=== PATIENT | male | born 1975 | race Caucasian/White ===

== ENCOUNTER 2017-10-28 12:39 | Inpatient (IN) | payer MEDICAID ==
[~2017-10-28] VITALS: Ht 185.4 cm; Wt 114.3 kg
[~2017-10-28 12:39] MED LIST: CALC-766 PO; FURO-150 PO; INSU100V7 SUBCUT; LEVO50TA77 PO; LOSA25TA3 PO; MELA2.5T PO; METO25TA6 PO; NPH,100V SUBCUT; OMEP20CA10 PO; RANI-281 PO; SERT50TA12 PO; SIMV20TA6 PO
--- NOTE | 2017-10-28 12:39 | NUR ---
Pt placed in bed 6 by [facility] 64
--- NOTE | 2017-10-28 12:39 | NUR ---
Per Medics, pt's blood sugar dropped to 54 causing pt to pass out. Mother called 911. Pt was given glucose paste and bs increased to 90. Pt arrives AAOx4, states that he took his insulin before eating breakfast. Pt states he checked his sugar, but doesn't recall value. Pt states that he woke up surrounded by paramedics. Pt denies c/o C/P or SOB, denies hitting head, no c/o pain or discomfort.
[2017-10-28 12:47] VITALS: BP_SYST 136
--- NOTE | 2017-10-28 12:55 | NUR ---
ER at bedside examining patient.
[2017-10-28] MEDS ORDERED: ASPI-1063 PO (12:57)
[2017-10-28] MEDS ORDERED: FURO-150 PO (12:57)
[2017-10-28] MEDS ORDERED: METO25TA3 PO (12:57)
[2017-10-28] MEDS ORDERED: DICL50TA9 PO (12:57)
[2017-10-28] MEDS ORDERED: OMEP-130 PO (12:57)
[2017-10-28] MEDS ORDERED: SERT50TA12 PO (12:57)
[2017-10-28] MEDS ORDERED: LOSA25TA3 PO (12:57)
[2017-10-28] MEDS ORDERED: LEVO50TA77 PO (12:57)
[2017-10-28] MEDS ORDERED: LIP20 PO (12:58)
[2017-10-28] MEDS ORDERED: INSU100V7 SUBCUT (12:58)
[2017-10-28] MEDS ORDERED: NPH,100V SUBCUT (12:58)
--- NOTE | 2017-10-28 12:58 | NUR ---
Medication reconciliation completed with information provided by patient. Any prior medication reconciliation on file was reviewed and corrected.
--- NOTE | 2017-10-28 13:31 | NUR ---
Pt to CT via W/C.
[2017-10-28 13:38] LABS: BASOPHILS % (AUTO) 0.4 % (0.0-2.0); EOSINOPHILS # (AUTO) 0.2 K/uL (0.0-0.4); EOSINOPHILS % (AUTO) 2.6 % (0.0-4.0); HEMATOCRIT 44.8 % (36-54); HEMOGLOBIN 14.8 g/dL (14.0-18.0); LYMPHOCYTES # (AUTO) 1.9 K/uL (1.0-5.5); LYMPHOCYTES % (AUTO) 21.1 % (20.5-51.5); MEAN CORPUSCULAR HEMOGLOBIN 31 pg (27-31); MEAN CORPUSCULAR HGB CONC 33 % (32-36); MEAN CORPUSCULAR VOLUME 92 fL (79.0-98.0); MONOCYTES # (AUTO) 0.6 K/uL (0.0-1.0); MONOCYTES % (AUTO) 7.2 % (1.7-9.3); NEUTROPHILS # (AUTO) 6.2 K/uL (1.8-7.7); NEUTROPHILS % (AUTO) 68.7 % (40.0-70.0); PLATELET COUNT (AUTO) 290 K/uL (130-430); RED BLOOD CELL COUNT(AUTO) 4.86 MIL/uL (4.2-6.2); RED CELL DISTRIBUTION WIDTH 13.4 % (9.0-15.0); WHITE BLOOD COUNT (AUTO) 8.9 K/uL (4.8-10.8)
--- NOTE | 2017-10-28 13:40 | NUR ---
Pt returns from CT. No needs verbalized at this time.
[2017-10-28 13:53] LABS: CALCIUM 8.7 mg/dL (8.4-11.0); CREATININE 1.83 mg/dL (0.55-1.30); POTASSIUM 3.8 mmol/L (3.5-5.1)
[2017-10-28 13:56] LABS: INR 0.9 (0.80-1.20); PROTHROMBIN TIME 9.3 SECS (9.5-12.5)
[2017-10-28 14:10] LABS: ALBUMIN 3.5 g/dL (3.4-4.8); TOTAL BILIRUBIN 0.5 mg/dL (0.0-1.0)
--- NOTE | 2017-10-28 15:10 | NUR ---
Pt accucheck 78. Dr. Quinn notified. Pt given orange juice. Pt AAOx4, denies c/o pain or discomfort, no needs verbalized at this time.
--- NOTE | 2017-10-28 15:28 | NUR ---
Patient will be admitted to care of Dr. Esteves. Admitted to Tele unit. Will go to room 134B. Belongings list completed. Summary report printed. Report will be given at bedside.
[2017-10-28] MEDS ORDERED: DEXTROSE 50% JECT 50 ML DISP.SYRIN IVP PRN (15:30)
[2017-10-28] MEDS ORDERED: INSULIN REGULAR, HUMAN 100 UNITS/ML, 10 ML VIAL (novoLIN R) SUBCUT PRN (15:30)
[2017-10-28] MEDS ORDERED: DEXTROSE 50%-WATER 50 ML DISP.SYRIN IVP PRN ×2 (15:45)
[2017-10-28] MEDS ORDERED: GLUCOSE 15 GM GEL (in 37.5 GM TUBE) PO PRN ×2 (15:45)
--- NOTE | 2017-10-28 15:45 | NUR ---
ADMISSION: The patient, ADELITA RAMOS, 41 y/o, M admitted by CHIKIS JIM MD, was given written information regarding hospital policies, unit procedures and contact persons. Valuables were checked and inventory done. call light within reach, two side rails up, bed at lowest position, bed alarm is on.
[2017-10-28 15:48] VITALS: BP_SYST 153
--- NOTE | 2017-10-28 16:10 | NUR ---
INITIAL NOTE RECEIVED PT IN BED, NO S/S OF DISTRESS OR SOB NOTED, NO DIZZINESS OR HEADACHE, PT HAS NO C/O PAIN AT THIS TIME, PT IN STABLE CONDITION, PT AAO X4, VERBAL, IV CATHETER PATENT, NO SIGNS OF INFECTION OR INFILTRATION NOTED. PT HAS NO SIGNS OF HYPOGLYCEMIA. BED AT LOWEST POSITION, CALL LIGHT WITHIN REACH, WILL CONTINUE TO MONITOR PT FOR ANY CHANGES, FALL PRECAUTIONS AND SAFETY PRECAUTIONS IN PLACE.
[2017-10-28 16:34] VITALS: BP_SYST 153
--- NOTE | 2017-10-28 18:22 | NUR ---
ROUNDS DR DIANDRA VAUGHAN ,AWARE OF PATIENTS CONDITION, PER MD TO COVER BLOOD GLUCOSE OF 255 AT THIS TIME, AWARE THAT HIS SUGAR IS 255. NEW ORDERS WRITTEN. Addendum: 10/28/17 at 1824 by Belia Mehta RN PER MD TO CALL HER IF BLOOD GLUCOSE IS ABOVE 200 OR AT 10 PM WITH RESULTS WHICH EVER COMES SOONER, NNEKAUCHMANSOOR Q4
--- NOTE | 2017-10-28 18:25 | NUR ---
EDUCATION EDUCATED PT ON SIDE EFFECTS OF NOVOLOG ADMINISTERED, PT VERBALIZED UNDERSTANDING
[2017-10-28] MEDS ORDERED: ZOLPIDEM TARTRATE 5 MG TABLET PO PRN (18:30)
[2017-10-28] MEDS ORDERED: INSULIN ASPART 100 UNITS/ML, 10 ML VIAL SUBCUT ONE (18:30)
[2017-10-28] MEDS ORDERED: HYDROcodone/ACETAMIN 5-325 MG TAB (NORCO/ VICODIN) PO PRN (18:30)
[2017-10-28] MEDS ORDERED: ACETAMINOPHEN 325 MG TABLET PO PRN (18:30)
[2017-10-28] MEDS ORDERED: cloNIDine HCL 0.1 MG TABLET PO PRN (18:30)
--- NOTE | 2017-10-28 18:35 | NUR ---
CLOSING NOTE PT IN BED, NO S/S OF DISTRESS OR SOB NOTED, NO DIZZINESS OR HEADACHE, PT HAS NO C/O PAIN AT THIS TIME, PT IN STABLE CONDITION, PT AAO X4, VERBAL, IV CATHETER PATENT, NO SIGNS OF INFECTION OR INFILTRATION NOTED. PT HAS NO SIGNS OF HYPOGLYCEMIA. BED AT LOWEST POSITION, CALL LIGHT WITHIN REACH, WILL ENDORSE CARE OF PT TO INCOMING NURSE, FALL PRECAUTIONS AND SAFETY PRECAUTIONS IN PLACE. NEEDS MET THROUGHOUT SHIFT.
[2017-10-28] MEDS ORDERED: PENI250T2 PO (18:46)
--- NOTE | 2017-10-28 18:49 | NUR ---
CALL DR DIANDRA MICHELLE TO LET HER KNOW PT BROUGHT IN [facility] ANTIBIOTICS AND WANTS TO RESUME THEM, AWAITING CALL BACK. Addendum: 10/28/17 at 1902 by Belia Mehta RN SPOKE WITH DR JIM AND SHE STATED THAT SHE WOULD CONTINUE THE MEDICATION ON HER OWN
--- NOTE | 2017-10-28 19:45 | NUR ---
ROUNDS PATIENT IN BED, WATCHING TV, VITALS STABLE, DENIES ANY PAIN AND DISCOMFORT AT THIS TIME. ASSESSMENT DONE AND DOCUMENTED. SEE FLOWSHEET. NEEDS ATTENDED TO. SAFETY MEASURES IN PLACED. BED IN LOW AND LOCKED POSITION. CALL LIGHT PLACED WITHIN REACH.
[2017-10-28] MEDS: METOPROLOL SUCCINATE 25 MG TAB.SR.24H (TOPROL XL) PO SCH (20:07)
[2017-10-28] MEDS: PENICILLIN V POTASSIUM 250 MG TABLET PO SCH (20:11)
[2017-10-28] MEDS: NACL 0.9% 1,000 ML IV SCH (21:05)
--- NOTE | 2017-10-28 22:10 | NUR ---
DR. JIM PAGED AND TALKED TO DR. JIM, PATIENT'S BLOOD SUGAR 168. NEW ORDER TO HAVE ACCU CHECK Q 4HRS. WILL CONTINUE TO MONITOR.
--- NOTE | 2017-10-29 00:05 | NUR ---
PATIENT RESTING: Patient resting quietly. No acute distress noted. Vital signs within normal range.
[2017-10-29 00:42] VITALS: BP_SYST 153
[2017-10-29] MEDS: PENICILLIN V POTASSIUM 250 MG TABLET PO SCH ×5 (01:45→23:54)
--- NOTE | 2017-10-29 02:10 | NUR ---
DR. JIM PAGED AND TALKED TO DR. JIM, PATIENT'S BLOOD SUGAR 265, NEW ORDER GIVEN FOR REGULAR INSULIN 4 UNITS SUBCUT X1. WILL CONTINUE TO MONITOR.
[2017-10-29] MEDS ORDERED: INSULIN REGULAR, HUMAN 100 UNITS/ML, 10 ML VIAL SUBCUT ONE (02:15)
[2017-10-29] MEDS ORDERED: INSULIN REGULAR, HUMAN 100 UNITS/ML, 10 ML VIAL SUBCUT SCH (02:30)
--- NOTE | 2017-10-29 04:13 | NUR ---
ROUNDS PATIENT ASLEEP, NO SOB NOR PAIN AND DISCOMFORT NOTED. WILL CONTINUE TO MONITOR.
[2017-10-29] MEDS: LEVOTHYROXINE SODIUM 0.05 MG TABLET PO SCH (06:02)
[2017-10-29 06:15] LABS: BASOPHILS % (AUTO) 0.4 % (0.0-2.0); EOSINOPHILS # (AUTO) 0.2 K/uL (0.0-0.4); EOSINOPHILS % (AUTO) 1.7 % (0.0-4.0); HEMATOCRIT 41.2 % (36-54); HEMOGLOBIN 13.9 g/dL (14.0-18.0); LYMPHOCYTES # (AUTO) 1.8 K/uL (1.0-5.5); LYMPHOCYTES % (AUTO) 17.2 % (20.5-51.5); MEAN CORPUSCULAR HEMOGLOBIN 31 pg (27-31); MEAN CORPUSCULAR HGB CONC 34 % (32-36); MEAN CORPUSCULAR VOLUME 92 fL (79.0-98.0); MONOCYTES # (AUTO) 0.7 K/uL (0.0-1.0); MONOCYTES % (AUTO) 6.3 % (1.7-9.3); NEUTROPHILS % (AUTO) 74.4 % (40.0-70.0); PLATELET COUNT (AUTO) 283 K/uL (130-430); RED BLOOD CELL COUNT(AUTO) 4.48 MIL/uL (4.2-6.2); RED CELL DISTRIBUTION WIDTH 13.4 % (9.0-15.0); WHITE BLOOD COUNT (AUTO) 10.7 K/uL (4.8-10.8)
--- NOTE | 2017-10-29 06:50 | NUR ---
CLOSING NOTES PATIENT AWAKE, VITALS STABLE, DENIES ANY PAIN AT THIS TIME. ALL NEEDS ATTENDED TO. SAFETY AND FALL PRECAUTION MEASURES MAINTAINED. BLOOD SUGAR CHECK DONE, 267 MG/DL, NO INSULIN COVERAGE. BED IN LOW AND LOCKED POSITION. CALL LIGHT PLACED WITHIN REACH.
[2017-10-29 06:52] LABS: CREATININE 1.6 mg/dL (0.55-1.30); POTASSIUM 4.4 mmol/L (3.5-5.1)
[2017-10-29] MEDS: NACL 0.9% 1,000 ML IV SCH ×3 (06:52→20:42)
[2017-10-29 07:07] LABS: ALBUMIN 3.3 g/dL (3.4-4.8); TOTAL BILIRUBIN 0.5 mg/dL (0.0-1.0)
[2017-10-29 08:00] VITALS: BP_SYST 149
--- NOTE | 2017-10-29 08:00 | NUR ---
PATIENT IN BED, A/OX4 WATCHING TV, VITALS STABLE, DENIES ANY PAIN AND DISCOMFORT AT THIS TIME. IV ON LEFT AC, #20, WITH NS AT 125ML/HR. CALL LIGHT IN PLACE, BED LOCKED AT THE LOWEST POSITION, WILL CONTINUE TO MONITOR.
[2017-10-29] MEDS: ATORVASTATIN 20 MG TABLET PO SCH (09:07)
[2017-10-29] MEDS: ASPIRIN 81 MG TABLET(ECOTRIN) PO SCH (09:08)
[2017-10-29] MEDS: METOPROLOL SUCCINATE 25 MG TAB.SR.24H (TOPROL XL) PO SCH ×2 (09:08→20:44)
[2017-10-29] MEDS: PANTOPRAZOLE SODIUM 40 MG TAB PO SCH (09:08)
[2017-10-29] MEDS: LOSARTAN POTASSIUM 25 MG TABLET PO SCH (09:08)
[2017-10-29] MEDS: SERTRALINE HCL 50 MG TABLET PO SCH (09:09)
[2017-10-29] MEDS ORDERED: MAG-AL HYDROX/SIMETH 30 ML UDC PO ONE (09:30)
[2017-10-29] MEDS ORDERED: INSULIN NPH 100 UNITS/ML 10 ML VIAL SUBCUT ONE ×3 (09:30→16:30)
--- NOTE | 2017-10-29 09:41 | NUR ---
BLOOD SUGAR 351. DR. JIM IS AWARE, AND ORDERS ARE GIVEN.
--- NOTE | 2017-10-29 09:45 | NUR ---
NPO STARTED IN PREPARATION OF US ABDOMEN.
--- NOTE | 2017-10-29 11:21 | NUR ---
PATIENT'S BLOOD SUGAR 362. 10 UNITS OF NPH IS GIVEN PER ORDER
[2017-10-29] MEDS ORDERED: SSNPH SQ (12:51)
[2017-10-29 12:53] VITALS: BP_SYST 154
--- NOTE | 2017-10-29 13:50 | NUR ---
PATIENT COMPLETES US. NPO LIFTED.
[2017-10-29] MEDS: INSULIN ASPART 100 UNITS/ML, 10 ML VIAL (NovoLOG) SUBCUT PRN ×3 (14:10→20:54)
--- NOTE | 2017-10-29 14:34 | NUR ---
CARE DELEGATED TO MARINA KAPADIA
--- NOTE | 2017-10-29 14:51 | NUR ---
Opening Note Report received from eFr GRAY. Patient is alert and oriented and is resting in bed. IV is on the LAC 20g SL. Abd US was done. No signs of distress noted at the moment. Call light is within reach and bed is in low position. Will continue to monitor.
[2017-10-29 16:23] VITALS: BP_SYST 147
[2017-10-29] MEDS ORDERED: METOCLOPRAMIDE HCL 10 MG TABLET PO ONE (16:30)
[2017-10-29] MEDS ORDERED: ONDANSETRON HCL 4 MG/2 ML VIAL IVP PRN (16:30)
--- NOTE | 2017-10-29 16:50 | NUR ---
RN Notes Current blood sugar is 247. Dr. Esteves was informed of the results. Urine for UA and drug screen was collected, results are pending.
[2017-10-29 17:48] LABS: BILIRUBIN,URINE NEGATIVE (NEGATIVE); CLARITY/URINE CLEAR (CLEAR); COLOR,URINE YELLOW (YELLOW); GLUCOSE,URINE 3+ (NEGATIVE); KETONES,URINE 1+ (NEGATIVE); LEUKOCYTE ESTERASE ,URINE NEGATIVE (NEGATIVE); NITRITE, URINE NEGATIVE (NEGATIVE); PH,URINE 5.5 (5.0-8.0); PROTEIN URINE 1+ (NEGATIVE); UROBILINOGEN,URINE 0.2 (0.2-1.0)
[2017-10-29 17:51] LABS: BLOOD, URINE TRACE (NEGATIVE)
[2017-10-29 17:59] LABS: BACTERIA,URINE FEW /HPF (None Seen); MUCUS,URINE None Seen /LPF (None Seen); RBC,URINE 0-3 /HPF (0-3); WBC,URINE NONE SEEN /HPF (0-3)
[2017-10-29 18:00] LABS: BARBITURATE, URINE NEGATIVE (NEG <=200); BENZODIAZEPINE, URINE NEGATIVE (NEG <=150); CANNABINOID, URINE POSITIVE (NEG <=50); COCAINE, URINE NEGATIVE (NEG <=150); METHAMPHETAMINES SCREEN,URINE NEGATIVE (NEG <=500); OPIATE, URINE POSITIVE (NEG <=100); PHENCYCLIDINE SCREEN,URINE NEGATIVE (NEG <=25); UR TRICYCLIC ANTIDEPRESSANTS NEGATIVE (NEG <=300); URINE AMPHETAMINE NEGATIVE (NEG <=500); URINE METHADONE NEGATIVE (NEG <=200); URINE OXYCODONE SCREEN NEGATIVE (NEG <=100); URINE PROPOXYPHENE SCREEN NEGATIVE (NEG <=300)
--- NOTE | 2017-10-29 18:58 | NUR ---
Closing Note Patient is resting in bed. His mother is at the bedside. IV is on the LAC 22g running NS@80. No signs of distress noted at the moment. Call light is within reach and bed is in low position. Will endorse care to the oncoming nurse.
[2017-10-29 19:00] VITALS: BP_SYST 137
--- NOTE | 2017-10-29 19:15 | NUR ---
change of shift.pt.presents stable status.general respiratory.dy shift nsg;severo;rn inquired if nausea has subsided post administration:zofran.pt.stated,yes.pt.stated he did not eat he hospital food, mother had presented w/food from home.pt.tolerated the food.
[2017-10-29 20:00] VITALS: BP_SYST 137
--- NOTE | 2017-10-29 20:00 | NUR ---
pt.assessed.v/s assessed;values w/in normal limits.i have apprised the pt.that snacks are available w/in the shift:no requests@this hour.no c/o pain/nausea.mother remains @bedside.pt.had inquired if he is to be d/c tonight.i am to review the drThaisorders.o2-sat%=98%.room air.iv fluids infusing.call light/telephone w/in the pt's reach.
[2017-10-29] MEDS: METOCLOPRAMIDE HCL 10 MG TABLET PO SCH (20:44)
--- NOTE | 2017-10-29 21:00 | NUR ---
210op medications administered.i have changed the iv fluids bag.i have assessed the blood glucose:value: 194mg/dl.i have administered 2-units;novolog insulin per the sliding scale.i have reviewed the dr's orders x2;re d/c home.no orders extant.i have apprised the pt.d/c is possible in am:10/30/17.wednesday. Addendum: 10/30/17 at 0136 by Heraclio Cifuentes RN mother has left the hospital.
--- NOTE | 2017-10-29 22:00 | NUR ---
pt.assessed.pt.presents quiescent affect;calm,somnolent.pt.capable to reposition self.pt.presents general status stable absent distress/discomfort.respiratory status absent distress/discomfort.iv fluids infusing.call light/telephone w/in the pt's reach.
--- NOTE | 2017-10-30 | NUR ---
pt.assessed.v/s assessed;values w/in normal limits.i have administered the midnight dose:pcn/k+ tab po. general status stable absent distress/discomfort.respiratory status stable absent distress/discomfort.pt. capable to reposition self.iv fluids infusing.call light/telephone w/in the pt's reach.no requests presents @this hour.
[2017-10-30 00:28] VITALS: BP_SYST 108
--- NOTE | 2017-10-30 02:00 | NUR ---
pt.assessed.pt.presents quiescent affect;calm,somnolent.general status stable absent distress/discomfort. respiratory status stable absent distress/discomfort.iv fluids infusing.call light/telephone w/in the pt's reach.
--- NOTE | 2017-10-30 04:00 | NUR ---
pt.assessed.pt.capable to reposition self.pt.presents quiescent affect;calm,somnolent. general status stable absent distress/discomfort.respiratory status stable absent distress/discomfort.iv fluids,infusing.call light/telephone w/in the pt's reach.
--- NOTE | 2017-10-30 06:09 | NUR ---
pt.assessed.pt.presents quiescent affect;calm,somnolent.pt.capable to reposition self. general status stable absent distress/discomfort.respiratory status absent distress/ discomfort.iv fluids infusing.call light/telephone w/in the reach of the pt.
[2017-10-30] MEDS: PENICILLIN V POTASSIUM 250 MG TABLET PO SCH ×2 (06:36→11:54)
[2017-10-30] MEDS: LEVOTHYROXINE SODIUM 0.05 MG TABLET PO SCH (06:37)
[2017-10-30] MEDS: METOCLOPRAMIDE HCL 10 MG TABLET PO SCH ×2 (06:37→13:51)
[2017-10-30 06:40] LABS: ALBUMIN 3.1 g/dL (3.4-4.8); CALCIUM 8.6 mg/dL (8.4-11.0); CREATININE 1.44 mg/dL (0.55-1.30); POTASSIUM 3.8 mmol/L (3.5-5.1); TOTAL BILIRUBIN 0.7 mg/dL (0.0-1.0)
[2017-10-30] MEDS: INSULIN ASPART 100 UNITS/ML, 10 ML VIAL (NovoLOG) SUBCUT PRN ×3 (06:43→14:57)
--- NOTE | 2017-10-30 06:48 | NUR ---
i have administered the 0600-0700a medications;i have assessed the blood glucose;value:194mg/dl. i have administered 2 units;novolog insulin.no requests@this hour.
--- NOTE | 2017-10-30 07:25 | NUR ---
Initial notes: Patient on bed awake, alert and oriented. Stable. I.V. access patent. Safety measures in placed.Side rails up. Refused to turn on bed alarm. Call light within reach. Report received from MARINA Pulliam.
[2017-10-30 08:03] VITALS: BP_SYST 145
[2017-10-30] MEDS: NACL 0.9% 1,000 ML IV SCH (09:05)
[2017-10-30] MEDS: ATORVASTATIN 20 MG TABLET PO SCH (09:05)
[2017-10-30] MEDS: ASPIRIN 81 MG TABLET(ECOTRIN) PO SCH (09:05)
[2017-10-30] MEDS: SERTRALINE HCL 50 MG TABLET PO SCH (09:05)
[2017-10-30] MEDS: METOPROLOL SUCCINATE 25 MG TAB.SR.24H (TOPROL XL) PO SCH (09:06)
[2017-10-30] MEDS: LOSARTAN POTASSIUM 25 MG TABLET PO SCH (09:06)
[2017-10-30] MEDS: PANTOPRAZOLE SODIUM 40 MG TAB PO SCH (09:06)
--- NOTE | 2017-10-30 09:12 | NUR ---
rounds: patient on bed resting. watching tv. no distress noted.
--- NOTE | 2017-10-30 11:10 | NUR ---
rounds: patient resting and watching tv. no distress noted.
[2017-10-30 11:29] VITALS: BP_SYST 143
[2017-10-30] MEDS ORDERED: INSULIN NPH 100 UNITS/ML 10 ML VIAL SUBCUT ONE (12:15)
[2017-10-30 12:45] VITALS: BP_SYST 137
[2017-10-30 13:17] VITALS: BP_SYST 143
--- NOTE | 2017-10-30 13:53 | NUR ---
Dietitian Recommendations *Recommend continuing [facility] diet per MD orders. *Recommend consider Glucerna BID for 5 days or until oral intake improves. Oral supplement will provide 440 kcal and 20 gm protein daily. Please see Nutritional Assessment for details. BO, RD
--- NOTE | 2017-10-30 14:59 | NUR ---
DM Education: DM education provided for the patient. Hand outs also given. Patient verbalized understanding.
[2017-10-30] MEDS ORDERED: METO-290 PO (15:28)
--- NOTE | 2017-10-30 15:45 | NUR ---
D/C Patient Patient given medication reconciliation form and D/C instructions. Exit Care provided. Patient verbalized understanding. MD discussed with patient the results and treatment provided. Ambulatory with unsteady gait uses cane for discharge to home. Patient in stable condition, ID band removed. IV catheter removed, intact and dressing applied, no active bleeding. Rx of given. Patient educated on pain management. All belongings sent with patient.
== END 2017-10-30 15:45 | disposition home or self-care (01) | DRG 420 ==
LOC: SED 12:39 → STU 15:21 → MERGE 15:21 → STU 15:31 → SMU 10-29 09:42
PROVIDERS: ADMIT Internal Medicine; ATTEND Internal Medicine
DX: E11.649 Type 2 diabetes mellitus with hypoglycemia without coma (principal); N17.0 Acute kidney failure with tubular necrosis; E11.21 Type 2 diabetes mellitus with diabetic nephropathy; I12.9 Hypertensive chronic kidney disease with stage 1 through stage 4 chronic kidney disease, or unspecified chronic kidney disease; E78.5 Hyperlipidemia, unspecified; E11.22 Type 2 diabetes mellitus with diabetic chronic kidney disease; E03.9 Hypothyroidism, unspecified; N18.9 Chronic kidney disease, unspecified; Z79.899 Other long term (current) drug therapy; Z87.891 Personal history of nicotine dependence; Z79.4 Long term (current) use of insulin
CPT/HCPCS: 36415; 70450-TC; 76700-TC; 76770; 80053; 80307; 81000-TC; 82962; 83605; 83690-TC; 83735-TC; 84484; 85025; 85610-TC; 87040-TC; 93005; 99285; J1815; J8597

== ENCOUNTER 2021-11-05 16:15 | Emergency (ER) | payer MEDICAID ==
[~2021-11-05] VITALS: Ht 185.4 cm; Wt 117.9 kg
[2021-11-05 16:15] VITALS: BP_SYST 145
[~2021-11-05 16:15] MED LIST changes: +ASPI-1393 PO; +CALC-17 PO; -CALC-766 PO; -LEVO50TA77 PO; +LIP20 PO; +METO-290 PO; +METO25TA3 PO; +OMEP-268 PO; -OMEP20CA10 PO; +OMEP20CA15 PO; +PENI250T2 PO; -RANI-281 PO; +RANI-673 PO; +SERT-436 PO; -SERT50TA12 PO; +SIMV-43 PO; -SIMV20TA6 PO; +SYN50 PO
[2021-11-05 17:45] LABS: BASOPHILS # (AUTO) 0.1 K/uL (0.0-0.2); BASOPHILS % (AUTO) 0.5 % (0.0-2.0); EOSINOPHILS # (AUTO) 0.1 K/uL (0.0-0.4); EOSINOPHILS % (AUTO) 1.1 % (0.0-4.0); HEMATOCRIT 48.6 % (36-54); HEMOGLOBIN 16.2 g/dL (14.0-18.0); LYMPHOCYTES # (AUTO) 2.4 K/uL (1.0-5.5); LYMPHOCYTES % (AUTO) 20.1 % (20.5-51.5); MEAN CORPUSCULAR HEMOGLOBIN 31 pg (27-31); MEAN CORPUSCULAR HGB CONC 33 % (32-36); MEAN CORPUSCULAR VOLUME 92 fL (79.0-98.0); MONOCYTES # (AUTO) 0.6 K/uL (0.0-1.0); MONOCYTES % (AUTO) 5.3 % (1.7-9.3); NEUTROPHILS # (AUTO) 8.6 K/uL (1.8-7.7); PLATELET COUNT (AUTO) 218 K/uL (130-430); RED BLOOD CELL COUNT(AUTO) 5.31 MIL/uL (4.2-6.2); RED CELL DISTRIBUTION WIDTH 14.5 % (9.0-15.0); WHITE BLOOD COUNT (AUTO) 11.8 K/uL (4.8-10.8)
[2021-11-05 18:03] LABS: ANION GAP 12 (5-15); CALCIUM 8.4 mg/dL (8.4-11.0); CHLORIDE 107 mmol/L (98-107); CREATININE 2.06 mg/dL (0.55-1.30); GLUCOSE 138 mg/dL (70-99); POTASSIUM 3.1 mmol/L (3.5-5.1); SODIUM SERUM 139 mmol/L (136-145); UREA NITROGEN, BLOOD 22 mg/dL (8-21)
[2021-11-05 18:05] LABS: GFR AFRICAN AMERICAN 45 mL/min (>90)
[2021-11-05 18:09] LABS: ALANINE AMINOTRANSFERASE 21 U/L (12-78); ALBUMIN 3.5 g/dL (3.4-4.8); ASPARTATE AMINOTRANSFERASE 16 U/L (10-37); TOTAL BILIRUBIN 0.4 mg/dL (0.0-1.0)
[2021-11-05 18:12] LABS: ALCOHOL, BLOOD < 3 mg/dL (<10)
[2021-11-05] MEDS ORDERED: POTASSIUM CHLORIDE 10 MEQ TAB.PRT.SR PO ONE (19:00)
[2021-11-05 20:00] LABS: BILIRUBIN,URINE NEGATIVE (NEGATIVE); BLOOD, URINE NEGATIVE (NEGATIVE); CLARITY/URINE CLEAR (CLEAR); COLOR,URINE YELLOW (YELLOW); GLUCOSE,URINE 3+ (NEGATIVE); KETONES,URINE NEGATIVE (NEGATIVE); LEUKOCYTE ESTERASE ,URINE NEGATIVE (NEGATIVE); NITRITE, URINE NEGATIVE (NEGATIVE); PH,URINE 5.5 (5.0-8.0); PROTEIN URINE 2+ (NEGATIVE); UROBILINOGEN,URINE 0.2 (0.2-1.0)
[2021-11-05 20:09] LABS: BARBITURATE, URINE NEGATIVE (NEG <=200)
[2021-11-05 20:10] LABS: BENZODIAZEPINE, URINE NEGATIVE (NEG <=150); CANNABINOID, URINE POSITIVE (NEG <=50); COCAINE, URINE NEGATIVE (NEG <=150); METHAMPHETAMINES SCREEN,URINE NEGATIVE (NEG <=500); OPIATE, URINE NEGATIVE (NEG <=100); PHENCYCLIDINE SCREEN,URINE NEGATIVE (NEG <=25); UR TRICYCLIC ANTIDEPRESSANTS NEGATIVE (NEG <=300); URINE AMPHETAMINE NEGATIVE (NEG <=500); URINE METHADONE NEGATIVE (NEG <=200); URINE OXYCODONE SCREEN NEGATIVE (NEG <=100); URINE PROPOXYPHENE SCREEN NEGATIVE (NEG <=300)
[2021-11-05 20:26] LABS: BACTERIA,URINE RARE /HPF (None Seen); RBC,URINE 0-3 /HPF (0-3); WBC,URINE 0-3 /HPF (0-3)
[2021-11-05 20:27] LABS: MUCUS,URINE 1+ /LPF (None Seen)
[2021-11-05 20:35] VITALS: BP_SYST 132
== END 2021-11-05 20:40 | disposition home or self-care (01) ==
LOC: SED 16:15
DX: E16.2 Hypoglycemia, unspecified (principal); R56.9 Unspecified convulsions; E11.9 Type 2 diabetes mellitus without complications; K21.9 Gastro-esophageal reflux disease without esophagitis; Z79.4 Long term (current) use of insulin; Z79.899 Other long term (current) drug therapy
CPT/HCPCS: 99283; 80307; 80053; 81000; 82962; 85025; 36415; G0482

== ENCOUNTER 2022-04-30 15:21 | Emergency (ER) | payer MEDICAID ==
[~2022-04-30] VITALS: Ht 185.4 cm; Wt 108.9 kg
[2022-04-30 15:36] VITALS: BP_SYST 113
--- NOTE | 2022-04-30 16:30 | NUR ---
PT BIB SELF AWAKE AND ALERT NO SOB OR DISTRESS. PT C/O PAIN TO R ARM. PT STATED THAT AFTEER HE RECEIVED IN IV 4 DAYS AGO THE AREA HAS BEEN SENSITIVE. PT DENIES N/V.
--- NOTE | 2022-04-30 16:44 | NUR ---
MD DR SÁNCHEZ AT BEDSIDE
[2022-04-30] MEDS ORDERED: OXYCODONE/ACETAMINOPHEN 5-325 TABLET PO ONE (17:00)
[2022-04-30] MEDS ORDERED: IBUP-1969 PO (18:45)
[2022-04-30 18:59] VITALS: BP_SYST 125
--- NOTE | 2022-04-30 19:00 | NUR ---
Patient given written and verbal discharge instructions and verbalizes understanding. ER MD DR SÁNCHEZ discussed with patient the results and treatment provided. Patient in stable condition. ID arm band removed. Rx of MOTRIN given. Patient educated on pain management and to follow up with PMD. Pain Scale 6/10. Opportunity for questions provided and answered. Medication side effect fact sheet provided.
== END 2022-04-30 18:59 | disposition home or self-care (01) ==
LOC: SED 15:21
DX: I82.611 Acute embolism and thrombosis of superficial veins of right upper extremity (principal); M79.631 Pain in right forearm; E11.9 Type 2 diabetes mellitus without complications; K21.9 Gastro-esophageal reflux disease without esophagitis; Z79.4 Long term (current) use of insulin; Z79.899 Other long term (current) drug therapy
CPT/HCPCS: 82962; 93971; 99284

== ENCOUNTER 2022-05-07 09:02 | Emergency (ER) | payer MEDICAID ==
[~2022-05-07] VITALS: Ht 177.8 cm; Wt 72.6 kg
[~2022-05-07 09:02] MED LIST changes: +IBUP-1969 PO
[2022-05-07 09:40] VITALS: BP_SYST 107
[2022-05-07] MEDS ORDERED: IBUP-1970 PO (11:59)
[2022-05-07 12:17] VITALS: BP_SYST 107
== END 2022-05-07 12:16 | disposition home or self-care (01) ==
LOC: SED 09:02
DX: I80.8 Phlebitis and thrombophlebitis of other sites (principal); E03.9 Hypothyroidism, unspecified; E11.9 Type 2 diabetes mellitus without complications; K21.9 Gastro-esophageal reflux disease without esophagitis; Z79.899 Other long term (current) drug therapy
CPT/HCPCS: 99282

== ENCOUNTER 2022-10-23 22:32 | Inpatient (IN) | payer MEDICAID ==
[~2022-10-23] VITALS: Ht 185.4 cm; Wt 120.7 kg
[~2022-10-23 22:32] MED LIST changes: +IBUP-1970 PO
[2022-10-23 22:43] VITALS: BP_SYST 120; PULSE 88; RESP 13; TEMP 97.8; O2SAT 97
[2022-10-23] MEDS ORDERED: PIPERACILLIN/TAZO 3.375 GM in NS 50 ML IV ONE (23:15)
[2022-10-23] MEDS ORDERED: VANCOMYCIN HCL 1,000 MG in NS 250 ML IV ONE (23:15)
[2022-10-23] MEDS ORDERED: HYDROcodone/ACETAMIN 5-325 MG TAB (NORCO/ VICODIN) PO ONE (23:15)
[2022-10-23 23:49] LABS: BASOPHILS % (AUTO) 0.3 % (0.0-2.0); EOSINOPHILS # (AUTO) 0.1 K/uL (0.0-0.4); HEMATOCRIT 42.5 % (36-54); HEMOGLOBIN 14.3 g/dL (14.0-18.0); LYMPHOCYTES # (AUTO) 1.7 K/uL (1.0-5.5); LYMPHOCYTES % (AUTO) 15.1 % (20.5-51.5); MEAN CORPUSCULAR HEMOGLOBIN 31 pg (27-31); MEAN CORPUSCULAR HGB CONC 34 % (32-36); MEAN CORPUSCULAR VOLUME 92 fL (79.0-98.0); MONOCYTES # (AUTO) 1.5 K/uL (0.0-1.0); MONOCYTES % (AUTO) 13.2 % (1.7-9.3); NEUTROPHILS # (AUTO) 7.8 K/uL (1.8-7.7); NEUTROPHILS % (AUTO) 70.4 % (40.0-70.0); PLATELET COUNT (AUTO) 176 K/uL (130-430); RED BLOOD CELL COUNT(AUTO) 4.61 MIL/uL (4.2-6.2); RED CELL DISTRIBUTION WIDTH 14.6 % (9.0-15.0); WHITE BLOOD COUNT (AUTO) 11.1 K/uL (4.8-10.8)
[2022-10-24] VITALS (9 sets, daily range): BP systolic 124–148; PULSE 71–97; RESP 16–18; TEMP 97–98.2; O2SAT 97–99
[2022-10-24 00:03] LABS: ERYTHROCYTE SEDIMENTATION RATE 35 MM/HR (0-15)
[2022-10-24] MEDS ORDERED: PIPERACILLIN/TAZOBACTAM 3.375 GM/VIAL (ZOSYN) IV ONE ×2 (00:08→04:37)
[2022-10-24] MEDS ORDERED: VANCOMYCIN HCL 1000 MG/VIAL IV ONE ×2 (00:39→04:36)
[2022-10-24 00:44] LABS: ALBUMIN 2.8 g/dL (3.4-4.8); C-REACTIVE PROTEIN QUANT 14.3 mg/dL (0-0.5); CALCIUM 8.4 mg/dL (8.4-11.0); CREATININE 1.78 mg/dL (0.55-1.30)
[2022-10-24] MEDS ORDERED: VANCOMYCIN HCL 1,000 MG in NS 250 ML IV ONE (02:30)
[2022-10-24] MEDS: PIPERACILLIN/TAZO 3.375 GM in NS 50 ML IV SCH ×3 (05:04→22:02)
[2022-10-24 05:07] LABS: BASOPHILS % (AUTO) 0.3 % (0.0-2.0); EOSINOPHILS # (AUTO) 0.1 K/uL (0.0-0.4); HEMATOCRIT 39.6 % (36-54); HEMOGLOBIN 13.5 g/dL (14.0-18.0); LYMPHOCYTES # (AUTO) 1.4 K/uL (1.0-5.5); LYMPHOCYTES % (AUTO) 12.5 % (20.5-51.5); MEAN CORPUSCULAR HEMOGLOBIN 31 pg (27-31); MEAN CORPUSCULAR HGB CONC 34 % (32-36); MEAN CORPUSCULAR VOLUME 92 fL (79.0-98.0); MONOCYTES # (AUTO) 1.1 K/uL (0.0-1.0); MONOCYTES % (AUTO) 10.3 % (1.7-9.3); NEUTROPHILS # (AUTO) 8.2 K/uL (1.8-7.7); NEUTROPHILS % (AUTO) 75.9 % (40.0-70.0); PLATELET COUNT (AUTO) 170 K/uL (130-430); RED BLOOD CELL COUNT(AUTO) 4.31 MIL/uL (4.2-6.2); RED CELL DISTRIBUTION WIDTH 14.5 % (9.0-15.0); WHITE BLOOD COUNT (AUTO) 10.9 K/uL (4.8-10.8)
[2022-10-24 05:38] LABS: ALBUMIN 2.6 g/dL (3.4-4.8); CALCIUM 7.9 mg/dL (8.4-11.0); CREATININE 1.71 mg/dL (0.55-1.30); TOTAL BILIRUBIN 1.1 mg/dL (0.0-1.0)
[2022-10-24] MEDS ORDERED: PANTOPRAZOLE SODIUM 40 MG TAB PO ONE (11:45)
[2022-10-24] MEDS ORDERED: ATORVASTATIN 20 MG TABLET PO ONE (11:45)
[2022-10-24] MEDS ORDERED: SERTRALINE HCL 50 MG TABLET PO ONE (11:45)
[2022-10-24] MEDS: INSULIN REGULAR, HUMAN 100 UNITS/ML, 3 ML VIAL (humuLIN R) SUBCUT PRN ×2 (12:03→23:51)
[2022-10-24] MEDS: ONDANSETRON HCL 4 MG/2 ML VIAL IVP PRN ×2 (12:34→18:48)
[2022-10-24] MEDS: METOCLOPRAMIDE HCL 10 MG TABLET PO SCH ×2 (14:20→21:57)
[2022-10-24] MEDS ORDERED: INSULIN NPH 100 UNITS/ML 10 ML VIAL SUBCUT SCH (21:00)
[2022-10-24] MEDS: FUROSEMIDE 20 MG TABLET PO SCH (21:56)
[2022-10-24] MEDS: METOPROLOL TARTRATE 25 MG TABLET PO SCH (21:59)
[2022-10-24] MEDS: VANCOMYCIN HCL 1,000 MG in NS 250 ML IV SCH (22:01)
[2022-10-25 00:11] VITALS: BP_SYST 138; PULSE 63; RESP 14; TEMP 98.9; O2SAT 94
[2022-10-25] MEDS: LEVOTHYROXINE SODIUM 0.05 MG TABLET PO SCH (06:02)
[2022-10-25] MEDS: PIPERACILLIN/TAZO 3.375 GM in NS 50 ML IV SCH ×3 (06:03→22:49)
[2022-10-25 07:21] LABS: CREATININE 1.59 mg/dL (0.55-1.30)
[2022-10-25 07:38] LABS: BASOPHILS # (AUTO) 0.1 K/uL (0.0-0.2); BASOPHILS % (AUTO) 0.5 % (0.0-2.0); EOSINOPHILS # (AUTO) 0.1 K/uL (0.0-0.4); EOSINOPHILS % (AUTO) 1.1 % (0.0-4.0); HEMOGLOBIN 13.6 g/dL (14.0-18.0); LYMPHOCYTES # (AUTO) 1.5 K/uL (1.0-5.5); LYMPHOCYTES % (AUTO) 11.9 % (20.5-51.5); MEAN CORPUSCULAR HEMOGLOBIN 31 pg (27-31); MEAN CORPUSCULAR HGB CONC 33 % (32-36); MEAN CORPUSCULAR VOLUME 92 fL (79.0-98.0); MONOCYTES # (AUTO) 1.2 K/uL (0.0-1.0); MONOCYTES % (AUTO) 9.6 % (1.7-9.3); NEUTROPHILS # (AUTO) 9.5 K/uL (1.8-7.7); NEUTROPHILS % (AUTO) 76.9 % (40.0-70.0); PLATELET COUNT (AUTO) 222 K/uL (130-430); RED BLOOD CELL COUNT(AUTO) 4.44 MIL/uL (4.2-6.2); RED CELL DISTRIBUTION WIDTH 14.5 % (9.0-15.0); WHITE BLOOD COUNT (AUTO) 12.4 K/uL (4.8-10.8)
[2022-10-25 08:00] VITALS: BP_SYST 125; PULSE 75; RESP 18; TEMP 97.7; O2SAT 100
[2022-10-25] MEDS: METOCLOPRAMIDE HCL 10 MG TABLET PO SCH ×3 (08:28→22:44)
[2022-10-25] MEDS: FUROSEMIDE 20 MG TABLET PO SCH ×2 (08:29→22:45)
[2022-10-25] MEDS: LOSARTAN POTASSIUM 25 MG TABLET PO SCH (08:29)
[2022-10-25] MEDS: SERTRALINE HCL 50 MG TABLET PO SCH (08:30)
[2022-10-25] MEDS: METOPROLOL TARTRATE 25 MG TABLET PO SCH ×2 (08:30→22:44)
[2022-10-25] MEDS: ATORVASTATIN 20 MG TABLET PO SCH (08:31)
[2022-10-25] MEDS: VANCOMYCIN HCL 1,000 MG in NS 250 ML IV SCH ×2 (08:32→22:49)
[2022-10-25] MEDS: PANTOPRAZOLE SODIUM 40 MG TAB PO SCH (08:37)
[2022-10-25 10:03] VITALS: O2SAT 100
[2022-10-25 11:30] VITALS: BP_SYST 131; PULSE 71; RESP 16; TEMP 97.7; O2SAT 95
[2022-10-25] MEDS: INSULIN REGULAR, HUMAN 100 UNITS/ML, 3 ML VIAL (humuLIN R) SUBCUT PRN ×3 (12:28→23:25)
[2022-10-25 15:08] VITALS: BP_SYST 125; PULSE 67; RESP 16; TEMP 97.5; O2SAT 96
[2022-10-25 20:00] VITALS: BP_SYST 128; BP_SYST 140; PULSE 69; PULSE 80; RESP 18; RESP 22; TEMP 97.8; O2SAT 97
[2022-10-25] MEDS: ONDANSETRON HCL 4 MG/2 ML VIAL IVP PRN (20:14)
[2022-10-26] VITALS: BP_SYST 126; PULSE 65; RESP 16; TEMP 97.2; O2SAT 100
[2022-10-26 05:16] LABS: BASOPHILS # (AUTO) 0.1 K/uL (0.0-0.2); BASOPHILS % (AUTO) 0.5 % (0.0-2.0); EOSINOPHILS # (AUTO) 0.1 K/uL (0.0-0.4); EOSINOPHILS % (AUTO) 0.9 % (0.0-4.0); HEMATOCRIT 39.1 % (36-54); HEMOGLOBIN 13.2 g/dL (14.0-18.0); LYMPHOCYTES # (AUTO) 1.8 K/uL (1.0-5.5); LYMPHOCYTES % (AUTO) 14.9 % (20.5-51.5); MEAN CORPUSCULAR HEMOGLOBIN 31 pg (27-31); MEAN CORPUSCULAR HGB CONC 34 % (32-36); MEAN CORPUSCULAR VOLUME 92 fL (79.0-98.0); MONOCYTES # (AUTO) 1.2 K/uL (0.0-1.0); MONOCYTES % (AUTO) 9.8 % (1.7-9.3); NEUTROPHILS # (AUTO) 8.9 K/uL (1.8-7.7); NEUTROPHILS % (AUTO) 73.9 % (40.0-70.0); PLATELET COUNT (AUTO) 256 K/uL (130-430); RED BLOOD CELL COUNT(AUTO) 4.24 MIL/uL (4.2-6.2); RED CELL DISTRIBUTION WIDTH 14.5 % (9.0-15.0)
[2022-10-26 05:38] LABS: CREATININE 1.64 mg/dL (0.55-1.30)
[2022-10-26] MEDS: LEVOTHYROXINE SODIUM 0.05 MG TABLET PO SCH (06:18)
[2022-10-26] MEDS: PIPERACILLIN/TAZO 3.375 GM in NS 50 ML IV SCH ×3 (06:18→21:11)
[2022-10-26 08:00] VITALS: O2SAT 98
[2022-10-26] MEDS: METOPROLOL TARTRATE 25 MG TABLET PO SCH ×2 (08:53→21:07)
[2022-10-26] MEDS: LOSARTAN POTASSIUM 25 MG TABLET PO SCH (08:53)
[2022-10-26] MEDS: METOCLOPRAMIDE HCL 10 MG TABLET PO SCH ×3 (08:54→21:07)
[2022-10-26] MEDS: SERTRALINE HCL 50 MG TABLET PO SCH (08:54)
[2022-10-26] MEDS: ATORVASTATIN 20 MG TABLET PO SCH (08:54)
[2022-10-26] MEDS: PANTOPRAZOLE SODIUM 40 MG TAB PO SCH (08:54)
[2022-10-26] MEDS: FUROSEMIDE 20 MG TABLET PO SCH ×2 (08:55→21:07)
[2022-10-26] MEDS: VANCOMYCIN HCL 1,000 MG in NS 250 ML IV SCH ×2 (08:56→17:12)
[2022-10-26 11:20] VITALS: BP_SYST 118; PULSE 69; RESP 16; TEMP 97.1; O2SAT 94
[2022-10-26] MEDS: INSULIN REGULAR, HUMAN 100 UNITS/ML, 3 ML VIAL (humuLIN R) SUBCUT PRN ×2 (12:40→17:15)
[2022-10-26 15:19] VITALS: BP_SYST 133; PULSE 66; RESP 16; TEMP 97.1; O2SAT 96
[2022-10-26] MEDS: BALSAM PERU/CASTOR OIL 56.7 GM OINT...G. TP SCH (17:09)
[2022-10-26 20:00] VITALS: BP_SYST 143; PULSE 63; RESP 20; TEMP 96.6; O2SAT 98
[2022-10-27] VITALS (7 sets, daily range): BP systolic 125–155; PULSE 63–78; RESP 16–20; TEMP 96.3–97.7; O2SAT 95–98
[2022-10-27] MEDS: INSULIN REGULAR, HUMAN 100 UNITS/ML, 3 ML VIAL (humuLIN R) SUBCUT PRN ×5 (00:02→21:24)
[2022-10-27] MEDS: VANCOMYCIN HCL 1,000 MG in NS 250 ML IV SCH ×3 (01:28→17:36)
[2022-10-27] MEDS: PIPERACILLIN/TAZO 3.375 GM in NS 50 ML IV SCH ×3 (06:00→21:09)
[2022-10-27] MEDS: LEVOTHYROXINE SODIUM 0.05 MG TABLET PO SCH (06:08)
[2022-10-27] MEDS: METOPROLOL TARTRATE 25 MG TABLET PO SCH ×2 (10:01→21:10)
[2022-10-27] MEDS: PANTOPRAZOLE SODIUM 40 MG TAB PO SCH (10:01)
[2022-10-27] MEDS: SERTRALINE HCL 50 MG TABLET PO SCH (10:01)
[2022-10-27] MEDS: ATORVASTATIN 20 MG TABLET PO SCH (10:02)
[2022-10-27] MEDS: FUROSEMIDE 20 MG TABLET PO SCH ×2 (10:02→21:10)
[2022-10-27] MEDS: METOCLOPRAMIDE HCL 10 MG TABLET PO SCH ×3 (10:02→21:10)
[2022-10-27] MEDS: LOSARTAN POTASSIUM 25 MG TABLET PO SCH (10:02)
[2022-10-27] MEDS: BALSAM PERU/CASTOR OIL 56.7 GM OINT...G. TP SCH (10:04)
[2022-10-28 00:15] VITALS: BP_SYST 115; PULSE 98; RESP 20; TEMP 96.4; O2SAT 96
[2022-10-28] MEDS: VANCOMYCIN HCL 1,000 MG in NS 250 ML IV SCH ×2 (01:01→09:00)
[2022-10-28] MEDS: PIPERACILLIN/TAZO 3.375 GM in NS 50 ML IV SCH ×2 (06:14→12:35)
[2022-10-28] MEDS: LEVOTHYROXINE SODIUM 0.05 MG TABLET PO SCH (06:14)
[2022-10-28] MEDS: INSULIN REGULAR, HUMAN 100 UNITS/ML, 3 ML VIAL (humuLIN R) SUBCUT PRN ×4 (06:24→23:00)
[2022-10-28] MEDS: INSULIN NPH 100 UNITS/ML 10 ML VIAL SUBCUT SCH ×2 (06:26→17:10)
[2022-10-28 08:15] VITALS: BP_SYST 110; PULSE 70; RESP 16; TEMP 97
[2022-10-28] MEDS: LOSARTAN POTASSIUM 25 MG TABLET PO SCH (08:59)
[2022-10-28] MEDS: FUROSEMIDE 20 MG TABLET PO SCH ×2 (09:00→22:55)
[2022-10-28] MEDS: ATORVASTATIN 20 MG TABLET PO SCH (09:00)
[2022-10-28] MEDS: METOPROLOL TARTRATE 25 MG TABLET PO SCH ×2 (09:01→22:55)
[2022-10-28] MEDS: PANTOPRAZOLE SODIUM 40 MG TAB PO SCH (09:01)
[2022-10-28] MEDS: SERTRALINE HCL 50 MG TABLET PO SCH (09:02)
[2022-10-28] MEDS: METOCLOPRAMIDE HCL 10 MG TABLET PO SCH ×3 (09:02→22:55)
[2022-10-28 11:21] VITALS: BP_SYST 129; PULSE 64; RESP 16; TEMP 97.5; O2SAT 98
[2022-10-28] MEDS: BALSAM PERU/CASTOR OIL 56.7 GM OINT...G. TP SCH (12:35)
[2022-10-28 15:11] VITALS: BP_SYST 132; PULSE 64; RESP 16; TEMP 97.4; O2SAT 94
[2022-10-28 20:05] VITALS: BP_SYST 120; PULSE 69; RESP 16; TEMP 97.5; O2SAT 99
[2022-10-28] MEDS: AMOXICILLIN/POTASSIUM CLAV 875 MG TABLET PO SCH (22:54)
[2022-10-29 00:20] VITALS: BP_SYST 133; PULSE 73; RESP 18; TEMP 97.3; O2SAT 96
[2022-10-29] MEDS: LEVOTHYROXINE SODIUM 0.05 MG TABLET PO SCH (06:07)
[2022-10-29] MEDS: INSULIN REGULAR, HUMAN 100 UNITS/ML, 3 ML VIAL (humuLIN R) SUBCUT PRN ×2 (06:46→12:15)
[2022-10-29] MEDS: INSULIN NPH 100 UNITS/ML 10 ML VIAL SUBCUT SCH (06:46)
[2022-10-29 07:34] LABS: ALBUMIN 2.9 g/dL (3.4-4.8); CALCIUM 8.9 mg/dL (8.4-11.0); CREATININE 2.14 mg/dL (0.55-1.30); TOTAL BILIRUBIN 0.6 mg/dL (0.0-1.0); VANCOMYCIN,RANDOM 25.7 ug/mL
[2022-10-29 08:26] VITALS: BP_SYST 113; PULSE 65; RESP 20; TEMP 96.9; O2SAT 97
[2022-10-29] MEDS: LOSARTAN POTASSIUM 25 MG TABLET PO SCH (08:47)
[2022-10-29] MEDS: AMOXICILLIN/POTASSIUM CLAV 875 MG TABLET PO SCH (08:47)
[2022-10-29] MEDS: METOPROLOL TARTRATE 25 MG TABLET PO SCH (08:47)
[2022-10-29] MEDS: SERTRALINE HCL 50 MG TABLET PO SCH (08:47)
[2022-10-29] MEDS: PANTOPRAZOLE SODIUM 40 MG TAB PO SCH (08:47)
[2022-10-29] MEDS: METOCLOPRAMIDE HCL 10 MG TABLET PO SCH (08:48)
[2022-10-29] MEDS: ATORVASTATIN 20 MG TABLET PO SCH (08:48)
[2022-10-29] MEDS: FUROSEMIDE 20 MG TABLET PO SCH (08:48)
[2022-10-29] MEDS: BALSAM PERU/CASTOR OIL 56.7 GM OINT...G. TP SCH (08:49)
[2022-10-29 11:14] VITALS: BP_SYST 119; PULSE 61; RESP 16; TEMP 98.2; O2SAT 97
[2022-10-29] MEDS ORDERED: AUG875 PO (13:54)
[2022-10-29 15:11] VITALS: BP_SYST 116; PULSE 16; RESP 16; TEMP 97.2; O2SAT 95
[2022-10-29 15:19] VITALS: BP_SYST 116; PULSE 64; RESP 16; TEMP 97.2; O2SAT 95
== END 2022-10-29 17:45 | disposition home health service (06) | DRG 720 ==
LOC: SED 22:32 → SMU 10-24 01:59
PROVIDERS: ADMIT Internal Medicine; ATTEND Internal Medicine
DX: A41.9 Sepsis, unspecified organism (principal); N17.0 Acute kidney failure with tubular necrosis; E43 Unspecified severe protein-calorie malnutrition; E11.610 Type 2 diabetes mellitus with diabetic neuropathic arthropathy; E11.319 Type 2 diabetes mellitus with unspecified diabetic retinopathy without macular edema; D72.829 Elevated white blood cell count, unspecified; B35.1 Tinea unguium; L97.529 Non-pressure chronic ulcer of other part of left foot with unspecified severity; L03.116 Cellulitis of left lower limb; E11.621 Type 2 diabetes mellitus with foot ulcer; E11.618 Type 2 diabetes mellitus with other diabetic arthropathy; E11.22 Type 2 diabetes mellitus with diabetic chronic kidney disease; B95.61 Methicillin susceptible Staphylococcus aureus infection as the cause of diseases classified elsewhere; Z68.35 Body mass index [BMI] 35.0-35.9, adult; E03.9 Hypothyroidism, unspecified; E11.51 Type 2 diabetes mellitus with diabetic peripheral angiopathy without gangrene; E78.00 Pure hypercholesterolemia, unspecified; I12.9 Hypertensive chronic kidney disease with stage 1 through stage 4 chronic kidney disease, or unspecified chronic kidney disease; N18.9 Chronic kidney disease, unspecified; F32.A Depression, unspecified; I25.10 Atherosclerotic heart disease of native coronary artery without angina pectoris
CPT/HCPCS: 36415; 73720; 73721; 80048; 80053; 80202; 83037; 83605; 85025; 85651-TC; 86140; 87040; 87070-TC; 87075-TC; 87186-TC; 96365; 99285; J1815; J2405; J2543; J3370; J7050; J8597

== ENCOUNTER 2024-03-08 14:04 | Emergency (ER) | payer MEDICAID ==
[~2024-03-08] VITALS: Ht 177.8 cm; Wt 136.1 kg
[~2024-03-08 14:04] MED LIST changes: +AUG875 PO; -IBUP-1970 PO; +LOSA-412 PO; -LOSA25TA3 PO; -MELA2.5T PO; +MELA2.5T16 PO; -METO25TA3 PO; -OMEP20CA15 PO; -PENI250T2 PO
[2024-03-08 14:05] VITALS: BP_SYST 161; PULSE 78; RESP 23; TEMP 97.1; O2SAT 100
[2024-03-08] MEDS: NACL 0.9% 1,000 ML IV ONE (15:31)
[2024-03-08 15:54] LABS: BILIRUBIN,URINE NEGATIVE (NEGATIVE); CLARITY/URINE CLEAR (CLEAR); COLOR,URINE YELLOW (YELLOW); GLUCOSE,URINE 3+ (NEGATIVE); KETONES,URINE 1+ (NEGATIVE); LEUKOCYTE ESTERASE ,URINE NEGATIVE (NEGATIVE); NITRITE, URINE NEGATIVE (NEGATIVE); PROTEIN URINE NEGATIVE (NEGATIVE); UROBILINOGEN,URINE 0.2 (0.2-1.0)
[2024-03-08 16:00] LABS: BASOPHILS % (AUTO) 0.1 % (0.0-2.0); HEMATOCRIT 47.2 % (36-54); HEMOGLOBIN 16.2 g/dL (14.0-18.0); LYMPHOCYTES # (AUTO) 1.4 K/uL (1.0-5.5); LYMPHOCYTES % (AUTO) 10.5 % (20.5-51.5); MEAN CORPUSCULAR HEMOGLOBIN 32 pg (27-31); MEAN CORPUSCULAR HGB CONC 34 % (32-36); MEAN CORPUSCULAR VOLUME 95 fL (79.0-98.0); MONOCYTES # (AUTO) 0.4 K/uL (0.0-1.0); NEUTROPHILS # (AUTO) 11.4 K/uL (1.8-7.7); NEUTROPHILS % (AUTO) 86.4 % (40.0-70.0); PLATELET COUNT (AUTO) 174 K/uL (130-430); RED BLOOD CELL COUNT(AUTO) 4.98 MIL/uL (4.2-6.2); RED CELL DISTRIBUTION WIDTH 15.2 % (9.0-15.0); WHITE BLOOD COUNT (AUTO) 13.2 K/uL (4.8-10.8)
[2024-03-08 16:02] LABS: BLOOD, URINE TRACE (NEGATIVE)
[2024-03-08 16:21] LABS: ALANINE AMINOTRANSFERASE 22 U/L (12-78); ALBUMIN 3.7 g/dL (3.4-4.8); ANION GAP 16 (5-15); ASPARTATE AMINOTRANSFERASE 18 U/L (10-37); BILIRUBIN,DIRECT 0.2 mg/dL (0.0-0.3); CALCIUM 8.9 mg/dL (8.4-11.0); CARBON DIOXIDE 20 mmol/L (23-29); CHLORIDE 104 mmol/L (98-107); CREATININE 2.47 mg/dL (0.55-1.30); GFR AFRICAN AMERICAN 36 mL/min (>90); LIPASE 11 U/L (16-77); SODIUM SERUM 140 mmol/L (136-145); TOTAL PROTEIN, SERUM 6.9 g/dL (6.4-8.3); UREA NITROGEN, BLOOD 31 mg/dL (8-21)
[2024-03-08 16:26] LABS: BACTERIA,URINE RARE /HPF (None Seen); MUCUS,URINE 1+ /LPF (None Seen); RBC,URINE 0-3 /HPF (0-3); WBC,URINE 0-3 /HPF (0-3)
[2024-03-08 16:35] LABS: GFR NON AFRICAN-AMERICAN 30 mL/min (>90); GLUCOSE 467 mg/dL (74-106)
[2024-03-08] MEDS: INSULIN REGULAR, HUMAN 10 UNITS/0.1 ML, 3 ML VIAL IVP ONE (16:47)
[2024-03-08 17:46] LABS: ACETONE, SERUM NEGATIVE (NEGATIVE)
[2024-03-08] MEDS ORDERED: ONDA-8 TL ×2 (18:01→22:02)
[2024-03-08 18:39] VITALS: BP_SYST 161; PULSE 78; RESP 23; TEMP 97.1; O2SAT 100
== END 2024-03-08 18:40 | disposition home or self-care (01) ==
LOC: SED 14:04
DX: E11.65 Type 2 diabetes mellitus with hyperglycemia (principal); E86.0 Dehydration; K52.9 Noninfective gastroenteritis and colitis, unspecified; E11.22 Type 2 diabetes mellitus with diabetic chronic kidney disease; N18.9 Chronic kidney disease, unspecified; K21.9 Gastro-esophageal reflux disease without esophagitis; E03.9 Hypothyroidism, unspecified; Z79.899 Other long term (current) drug therapy; Z79.2 Long term (current) use of antibiotics
CPT/HCPCS: 99283; 96374; 96361; 80076; 80048; 81001; 82009; 83690; 85025; 36415; 82948; J1815; J7030; 81000; 81015